=== PATIENT | male | born 2000 | race Hispanic/Latino ===

== ENCOUNTER 2020-09-03 18:49 | Emergency (ER) | payer BC ==
[~2020-09-03] VITALS: Ht 162.6 cm; Wt 68.0 kg
[2020-09-03] MEDS ORDERED: PANTOPRAZOLE 40 MG 10ML VIAL IV STA (19:21)
[2020-09-03] MEDS ORDERED: ONDANSETRON HCL INJ 2MG/ML 2ML 2 MG/ML VIAL IV STA (19:21)
[2020-09-03 19:41] LABS: BASOPHILS # (AUTO) 0.1 (0.0-0.1); BASOPHILS % 0.4 % (0.0-1.0); EOSINOPHILS % 0.1 % (0.0-6.0); HEMATOCRIT 42.2 % (38.2-49.6); HEMOGLOBIN 15.6 g/dL (14.0-18.0); LYMPHOCYTES # (AUTO) 1.1 (1.0-3.2); LYMPHOCYTES % 8.2 % (18.0-39.1); MEAN CORPUSCULAR HEMOGLOBIN 30.8 pg (28-32); MEAN CORPUSCULAR VOLUME 83.4 fL (81-99); MONOCYTES # (AUTO) 0.4 (0.2-0.8); MONOCYTES % 3.2 % (4.4-11.3); NEUTROPHILS # (AUTO) 11.8 (2.1-6.9); NEUTROPHILS % 87.1 % (38.7-80.0); PLATELET COUNT 252 x10e3/uL (140-360); RED BLOOD COUNT 5.06 x10e6/uL (4.3-5.7); RED CELL DISTRIBUTION WIDTH 11.8 % (11.7-14.4)
[2020-09-03 20:01] LABS: ALANINE AMINOTRANSFERASE 22 IU/L (0-55); ALBUMIN 4.8 g/dL (3.5-5.0); ALBUMIN/GLOBULIN RATIO 1.7 (0.8-2.0); ALKALINE PHOSPHATASE 95 IU/L (40-150); ANION GAP 17.7 mmol/L (8-16); BLOOD UREA NITROGEN 9 mg/dL (7-26); BUN/CREATININE RATIO 13 (6-25); CALCIUM 9.1 mg/dL (8.4-10.2); CARBON DIOXIDE 20 mmol/L (22-29); CHLORIDE 102 mmol/L (98-107); CREATININE, SERUM 0.67 mg/dL (0.72-1.25); EST GLOMERULAR FILTRATION RATE > 60 ML/MIN (60-); GLUCOSE 268 mg/dL (74-118); POTASSIUM 3.7 mmol/L (3.5-5.1); SODIUM 136 mmol/L (136-145)
[2020-09-03 20:02] LABS: AMYLASE 40 U/L (25-125); LIPASE 10 U/L (8-78)
[2020-09-03 22:53] LABS: CLARITY,URINE CLEAR (CLEAR); COLOR,URINE YELLOW (YELLOW)
[2020-09-03 22:54] LABS: AMPHETAMINES SCREEN,URINE NEGATIVE (NEGATIVE); BENZODIAZEPINES SCREEN,URINE POSITIVE (NEGATIVE); KETONES,URINE 3+ (NEGATIVE); LEUKOCYTE ESTERASE ,URINE NEGATIVE (NEGATIVE); NITRITE,URINE NEGATIVE (NEGATIVE); PHENCYCLIDINE SCREEN,URINE NEGATIVE (NEGATIVE); PROTEIN,URINE DIPSTICK NEGATIVE (NEGATIVE); URINE UROBILINOGEN 0.2 mg/dL (0.2 - 1)
[2020-09-03 22:58] LABS: BACTERIA,URINE RARE /HPF; EPITHELIAL CELLS,URINE RARE /LPF; WBC,URINE (MAN) 0-5 /HPF (0-5)
[2020-09-04 00:44] VITALS: BP 132/68
== END 2020-09-04 00:47 | disposition home or self-care (01) ==
LOC: ER 19:05
DX: K29.70 Gastritis, unspecified, without bleeding (principal); R11.10 Vomiting, unspecified; E11.9 Type 2 diabetes mellitus without complications; Z90.49 Acquired absence of other specified parts of digestive tract
CPT/HCPCS: 36415; 74022; 80053; 80307; 81001; 82150; 83690; 85025; 99284; C9113; J2405

== ENCOUNTER 2020-09-21 11:14 | Emergency (ER) | payer OTHER ==
[~2020-09-21] VITALS: Ht 162.6 cm; Wt 68.0 kg
[2020-09-21] MEDS ORDERED: SODIUM CHLORIDE 0.9% 1000ML 1,000 ML IV STA (11:37)
[2020-09-21] MEDS ORDERED: DIPHENHYDRAMINE HCL INJ 50 MG/ML VIAL IV ONE (11:45)
[2020-09-21] MEDS ORDERED: HALOPERIDOL LACTATE 5 MG/ML VIAL IV ONE (11:45)
[2020-09-21 11:54] LABS: BASOPHILS % 0.4 % (0.0-1.0); EOSINOPHILS # (AUTO) 0.1 (0.0-0.4); EOSINOPHILS % 0.8 % (0.0-6.0); HEMATOCRIT 41.3 % (38.2-49.6); HEMOGLOBIN 15.3 g/dL (14.0-18.0); LYMPHOCYTES # (AUTO) 2.2 (1.0-3.2); LYMPHOCYTES % 22.7 % (18.0-39.1); MEAN CORPUSCULAR HEMOGLOBIN 30.5 pg (28-32); MEAN CORPUSCULAR VOLUME 82.4 fL (81-99); MONOCYTES # (AUTO) 0.5 (0.2-0.8); MONOCYTES % 4.8 % (4.4-11.3); NEUTROPHILS # (AUTO) 6.7 (2.1-6.9); NEUTROPHILS % 70.9 % (38.7-80.0); PLATELET COUNT 253 x10e3/uL (140-360); RED BLOOD COUNT 5.01 x10e6/uL (4.3-5.7); RED CELL DISTRIBUTION WIDTH 11.6 % (11.7-14.4)
[2020-09-21 12:20] LABS: ALANINE AMINOTRANSFERASE 27 IU/L (0-55); ALBUMIN 4.5 g/dL (3.5-5.0); ALBUMIN/GLOBULIN RATIO 1.5 (0.8-2.0); ALKALINE PHOSPHATASE 86 IU/L (40-150); ANION GAP 18.6 mmol/L (8-16); BLOOD UREA NITROGEN 15 mg/dL (7-26); BUN/CREATININE RATIO 21 (6-25); CALCIUM 9.1 mg/dL (8.4-10.2); CARBON DIOXIDE 19 mmol/L (22-29); CHLORIDE 104 mmol/L (98-107); EST GLOMERULAR FILTRATION RATE > 60 ML/MIN (60-); GLUCOSE 252 mg/dL (74-118); LIPASE 29 U/L (8-78); POTASSIUM 3.6 mmol/L (3.5-5.1); SODIUM 138 mmol/L (136-145)
[2020-09-21 13:44] LABS: CLARITY,URINE CLEAR (CLEAR); COLOR,URINE YELLOW (YELLOW)
[2020-09-21 13:46] LABS: KETONES,URINE 2+ (NEGATIVE); LEUKOCYTE ESTERASE ,URINE NEGATIVE (NEGATIVE); NITRITE,URINE NEGATIVE (NEGATIVE); PROTEIN,URINE DIPSTICK NEGATIVE (NEGATIVE); URINE UROBILINOGEN 0.2 mg/dL (0.2 - 1)
[2020-09-21 13:47] LABS: AMPHETAMINES SCREEN,URINE NEGATIVE (NEGATIVE); BENZODIAZEPINES SCREEN,URINE NEGATIVE (NEGATIVE); PHENCYCLIDINE SCREEN,URINE NEGATIVE (NEGATIVE)
[2020-09-21 13:55] LABS: WBC,URINE (MAN) 0-5 /HPF (0-5)
[2020-09-21 13:56] LABS: BACTERIA,URINE RARE /HPF; EPITHELIAL CELLS,URINE FEW /LPF
== END 2020-09-21 13:52 | disposition left against medical advice (07) ==
LOC: ER 11:23
DX: R10.9 Unspecified abdominal pain (principal); R11.2 Nausea with vomiting, unspecified; K29.70 Gastritis, unspecified, without bleeding; K21.9 Gastro-esophageal reflux disease without esophagitis; F41.9 Anxiety disorder, unspecified
CPT/HCPCS: 36415; 74022; 80053; 80307; 81001; 83690; 85025; 93005; 99284; J1200; J1630; J7030

== ENCOUNTER 2021-01-17 13:43 | Emergency (ER) | payer SELFPAY ==
[~2021-01-17] VITALS: Ht 160 cm; Wt 77.1 kg
[~2021-01-17 13:43] MED LIST: CARAFATE1 GM/10 ML PO; HUMULIN 70100 UNIT/3 SQ; METFORMIN HCL500 MG PO; METOCLOPRAMIDE10 MG PO; NOVOLIN 70100 UNIT/3 SQ; ONDANSETRON ODT4 MG PO; PANTOPRAZOLE SO40 MG PO; PEPCID20 MG PO
[2021-01-17] MEDS ORDERED: KETOROLAC TROMETHAMINE 30 MG/ML VIAL IV STA (13:59)
[2021-01-17 14:30] LABS: CLARITY,URINE SL CLOUDY (CLEAR); COLOR,URINE YELLOW (YELLOW); KETONES,URINE >=160 (NEGATIVE); LEUKOCYTE ESTERASE ,URINE TRACE (NEGATIVE); NITRITE,URINE NEGATIVE (NEGATIVE); PROTEIN,URINE DIPSTICK NEGATIVE (NEGATIVE); URINE UROBILINOGEN 0.2 mg/dL (0.2 - 1)
[2021-01-17 14:38] LABS: BACTERIA,URINE MODERATE /HPF; EPITHELIAL CELLS,URINE FEW /LPF; TRANSITIONAL EPI CELLS,URINE RARE
[2021-01-17] MEDS ORDERED: DONNATAL/LIDOCAINE/MAALOX 30 ML SUSP PO ONE (14:45)
[2021-01-17] MEDS ORDERED: HALOPERIDOL LACTATE 5 MG/ML VIAL IV ONE (14:45)
[2021-01-17] MEDS ORDERED: CEPHALEXIN 500 MG CAP PO ONE (16:00)
[2021-01-17 16:42] LABS: BASOPHILS # (AUTO) 0.1 (0.0-0.1); BASOPHILS % 0.5 % (0.0-1.0); EOSINOPHILS % 0.2 % (0.0-6.0); HEMATOCRIT 45.5 % (38.2-49.6); HEMOGLOBIN 16.3 g/dL (14.0-18.0); LYMPHOCYTES # (AUTO) 0.9 (1.0-3.2); LYMPHOCYTES % 8.4 % (18.0-39.1); MEAN CORPUSCULAR HEMOGLOBIN 30.5 pg (28-32); MEAN CORPUSCULAR HGB CONC 35.8 g/dL (31-35); MEAN CORPUSCULAR VOLUME 85.2 fL (81-99); MONOCYTES # (AUTO) 0.4 (0.2-0.8); MONOCYTES % 4.1 % (4.4-11.3); NEUTROPHILS % 85.8 % (38.7-80.0); PLATELET COUNT 200 x10e3/uL (140-360); RED BLOOD COUNT 5.34 x10e6/uL (4.3-5.7); RED CELL DISTRIBUTION WIDTH 12.7 % (11.7-14.4)
[2021-01-17 17:03] LABS: ALBUMIN 4.2 g/dL (3.5-5.0); ALBUMIN/GLOBULIN RATIO 1.3 (0.8-2.0); ANION GAP 17.8 mmol/L (8-16); CALCIUM 8.9 mg/dL (8.4-10.2); CREATININE, SERUM 0.68 mg/dL (0.72-1.25); POTASSIUM 3.8 mmol/L (3.5-5.1)
[2021-01-17] MEDS ORDERED: SODIUM CHLORIDE 0.9% 50ML 50 ML ONE (17:54)
[2021-01-17] MEDS ORDERED: IOPAMIDOL 370 MG/ML 200 ML INFUS..BTL INJ ONE (17:55)
== END 2021-01-17 18:20 | disposition home or self-care (01) ==
LOC: MERGE 14:10 → ER 14:10
DX: E11.43 Type 2 diabetes mellitus with diabetic autonomic (poly)neuropathy (principal); R10.13 Epigastric pain; R16.2 Hepatomegaly with splenomegaly, not elsewhere classified; K21.9 Gastro-esophageal reflux disease without esophagitis; F17.210 Nicotine dependence, cigarettes, uncomplicated
CPT/HCPCS: 36415; 74177; 80053; 81001; 85025; 99284; J1630; J1885; Q9967

== ENCOUNTER 2021-01-20 21:42 | Emergency (ER) | payer SELFPAY ==
[~2021-01-20] VITALS: Ht 160 cm; Wt 77.1 kg
[2021-01-20] MEDS ORDERED: SODIUM CHLORIDE 0.9% 1000ML 1,000 ML IV STA (21:57)
[2021-01-20] MEDS ORDERED: HALOPERIDOL LACTATE 5 MG/ML VIAL IV ONE (22:00)
[2021-01-20] MEDS ORDERED: SODIUM CHLORIDE 0.9% 1000ML 1,000 ML ONE (22:05)
[2021-01-20] MEDS ORDERED: HALOPERIDOL LACTATE 5 MG/ML VIAL ONE (22:05)
[2021-01-20] MEDS ORDERED: REGLAN10 MG PO (22:09)
== END 2021-01-20 22:45 | disposition home or self-care (01) ==
LOC: FSED 21:46
DX: E11.43 Type 2 diabetes mellitus with diabetic autonomic (poly)neuropathy (principal); K31.84 Gastroparesis; R10.13 Epigastric pain; K21.9 Gastro-esophageal reflux disease without esophagitis
CPT/HCPCS: 80053; 85025; 99283; J1630; J7030

== ENCOUNTER 2021-01-22 08:08 | Inpatient (IN) | payer SELFPAY ==
[~2021-01-22] VITALS: Ht 160 cm; Wt 77.1 kg
[~2021-01-22 08:08] MED LIST changes: +REGLAN10 MG PO
[2021-01-22] MEDS ORDERED: SODIUM CHLORIDE 0.9% 1000ML 1,000 ML IV SCH ×3 (08:15→10:00)
[2021-01-22] MEDS ORDERED: HALOPERIDOL LACTATE 5 MG/ML VIAL IV ONE (08:15)
[2021-01-22 08:34] LABS: BASOPHILS # (AUTO) 0.1 (0.0-0.1); BASOPHILS % 0.5 % (0.0-1.0); EOSINOPHILS # (AUTO) 0.1 (0.0-0.4); EOSINOPHILS % 0.9 % (0.0-6.0); HEMATOCRIT 45.9 % (38.2-49.6); HEMOGLOBIN 16.7 g/dL (14.0-18.0); LYMPHOCYTES # (AUTO) 1.8 (1.0-3.2); LYMPHOCYTES % 16.5 % (18.0-39.1); MEAN CORPUSCULAR HEMOGLOBIN 30.5 pg (28-32); MEAN CORPUSCULAR HGB CONC 36.4 g/dL (31-35); MEAN CORPUSCULAR VOLUME 83.9 fL (81-99); MONOCYTES # (AUTO) 0.7 (0.2-0.8); MONOCYTES % 6.6 % (4.4-11.3); NEUTROPHILS # (AUTO) 7.9 (2.1-6.9); NEUTROPHILS % 74.4 % (38.7-80.0); PLATELET COUNT 215 x10e3/uL (140-360); RED BLOOD COUNT 5.47 x10e6/uL (4.3-5.7); RED CELL DISTRIBUTION WIDTH 12.5 % (11.7-14.4)
[2021-01-22] MEDS ORDERED: FAMOTIDINE 20 MG/2 ML VIAL IV STA (08:50)
[2021-01-22 08:58] LABS: CLARITY,URINE CLOUDY (CLEAR); COLOR,URINE YELLOW (YELLOW); KETONES,URINE >=160 (NEGATIVE); LEUKOCYTE ESTERASE ,URINE SMALL (NEGATIVE); NITRITE,URINE NEGATIVE (NEGATIVE); PROTEIN,URINE DIPSTICK NEGATIVE (NEGATIVE); URINE UROBILINOGEN 0.2 mg/dL (0.2 - 1)
[2021-01-22] MEDS ORDERED: TRAMADOL HCL 50 MG TAB PO ONE (09:00)
[2021-01-22 09:13] LABS: WBC,URINE (MAN) 21-50 /HPF (0-5)
[2021-01-22 09:14] LABS: BACTERIA,URINE MODERATE /HPF
[2021-01-22 09:15] LABS: ALBUMIN 4.3 g/dL (3.5-5.0); ALBUMIN/GLOBULIN RATIO 1.4 (0.8-2.0); ANION GAP 22.2 mmol/L (8-16); CALCIUM 8.9 mg/dL (8.4-10.2); CREATININE, SERUM 0.68 mg/dL (0.72-1.25); EPITHELIAL CELLS,URINE MODERATE /LPF; POTASSIUM 3.2 mmol/L (3.5-5.1)
[2021-01-22] MEDS ORDERED: INSULIN REGULAR, HUMAN 100 UNIT/1 ML IV ONE (09:30)
[2021-01-22] MEDS ORDERED: CEFTRIAXONE 1 GM VIAL IV ONE (09:30)
[2021-01-22] MEDS ORDERED: POTASSIUM CHLORIDE 20 MEQ TAB CR PO STA (09:33)
[2021-01-22] MEDS ORDERED: POTASSIUM CHLORIDE 20MEQ/100ML 100 ML IV ONE (09:45)
[2021-01-22] MEDS ORDERED: CEFTRIAXONE 1 GM in SODIUM CHLORIDE 0.9% 50ML 50 ML IV ONE (10:00)
[2021-01-22] MEDS ORDERED: Morphine 4mg Syringe 4 MG/ML INJ IV PRN ×2 (10:15→21:30)
[2021-01-22] MEDS ORDERED: INSULIN REGULAR, HUMAN 3ML VL 100 UNIT in SODIUM CHLORIDE 0.9% 100 ML 99 ML IV SCH ×2 (10:15)
[2021-01-22 10:57] LABS: CHOL/HDL RATIO 4.7 (3.9-4.7)
[2021-01-22 12:40] LABS: ANION GAP 15.7 mmol/L (8-16); CREATININE, SERUM 0.57 mg/dL (0.72-1.25); POTASSIUM 3.7 mmol/L (3.5-5.1)
[2021-01-22 12:41] LABS: CALCIUM 7.8 mg/dL (8.4-10.2)
[2021-01-22] MEDS ORDERED: DEXTROSE 5%/0.45% SOD CHL 1,000 ML IV ONE (12:45)
[2021-01-22 13:35] LABS: ANION GAP 13.9 mmol/L (8-16); CALCIUM 8.4 mg/dL (8.4-10.2); CREATININE, SERUM 0.67 mg/dL (0.72-1.25); POTASSIUM 3.9 mmol/L (3.5-5.1)
[2021-01-22] MEDS: SODIUM CHLORIDE 0.9% 1000ML 1,000 ML IV SCH ×2 (13:43→21:42)
[2021-01-22] MEDS ORDERED: DEXTROSE 50% SYRINGE 50 ML IV PRN ×2 (14:00→16:00)
[2021-01-22 16:07] VITALS: BP 149/85
[2021-01-22] MEDS ORDERED: INSULIN REGULAR, HUMAN 100 UNIT/1 ML SQ SCH (16:30)
[2021-01-22] MEDS ORDERED: METFORMIN HCL500 MG PO (16:43)
[2021-01-22] MEDS ORDERED: GLIPIZIDE5 MG PO (16:43)
[2021-01-22 16:49] VITALS: BP 149/85
[2021-01-22 17:18] VITALS: BP 149/85
[2021-01-22] MEDS: INSULIN REGULAR, HUMAN 100 UNIT/1 ML SQ SCH ×2 (17:59→21:04)
[2021-01-22] MEDS: METOCLOPRAMIDE HCL 10 MG/2ML VIAL IV SCH (17:59)
[2021-01-22 20:00] VITALS: BP 152/91
[2021-01-22] MEDS: MELATONIN 5 MG TABLET PO SCH (20:37)
[2021-01-22 22:18] VITALS: BP 152/91
[2021-01-22] MEDS: ONDANSETRON HCL INJ 2MG/ML 2ML 2 MG/ML VIAL IV PRN (22:51)
[2021-01-23] VITALS: BP 141/82
[2021-01-23 04:00] VITALS: BP 145/88
[2021-01-23] MEDS: SODIUM CHLORIDE 0.9% 1000ML 1,000 ML IV SCH (05:07)
[2021-01-23] MEDS: ONDANSETRON HCL INJ 2MG/ML 2ML 2 MG/ML VIAL IV PRN ×4 (05:38→23:56)
[2021-01-23] MEDS: Morphine 4mg Syringe 4 MG/ML INJ IV PRN ×4 (05:38→23:55)
[2021-01-23 06:01] LABS: BASOPHILS % 0.4 % (0.0-1.0); EOSINOPHILS % 0.4 % (0.0-6.0); HEMOGLOBIN 15.5 g/dL (14.0-18.0); LYMPHOCYTES # (AUTO) 1.6 (1.0-3.2); LYMPHOCYTES % 21.9 % (18.0-39.1); MEAN CORPUSCULAR HEMOGLOBIN 30.6 pg (28-32); MEAN CORPUSCULAR VOLUME 84.8 fL (81-99); MONOCYTES # (AUTO) 0.6 (0.2-0.8); MONOCYTES % 7.8 % (4.4-11.3); NEUTROPHILS # (AUTO) 5.1 (2.1-6.9); NEUTROPHILS % 68.4 % (38.7-80.0); PLATELET COUNT 202 x10e3/uL (140-360); RED BLOOD COUNT 5.07 x10e6/uL (4.3-5.7); RED CELL DISTRIBUTION WIDTH 12.5 % (11.7-14.4)
[2021-01-23 06:30] LABS: ALANINE AMINOTRANSFERASE 43 IU/L (0-55); ALBUMIN 3.9 g/dL (3.5-5.0); ALBUMIN/GLOBULIN RATIO 1.5 (0.8-2.0); ALKALINE PHOSPHATASE 75 IU/L (40-150); ANION GAP 16.1 mmol/L (8-16); CALCIUM 8.6 mg/dL (8.4-10.2); CARBON DIOXIDE 22 mmol/L (22-29); CHLORIDE 100 mmol/L (98-107); CREATININE, SERUM 0.57 mg/dL (0.72-1.25); EST GLOMERULAR FILTRATION RATE 180 ML/MIN (60-); GLUCOSE 178 mg/dL (74-118); POTASSIUM 3.1 mmol/L (3.5-5.1); SODIUM 135 mmol/L (136-145)
[2021-01-23 06:44] LABS: BUN/CREATININE RATIO 9 (6-25)
[2021-01-23 06:45] LABS: BLOOD UREA NITROGEN < 5 mg/dL (7-26)
[2021-01-23 07:08] VITALS: BP 142/84
[2021-01-23] MEDS: INSULIN REGULAR, HUMAN 100 UNIT/1 ML SQ SCH ×4 (07:56→21:27)
[2021-01-23] MEDS: METOCLOPRAMIDE HCL 10 MG/2ML VIAL IV SCH ×2 (08:55→17:11)
[2021-01-23] MEDS ORDERED: POTASSIUM CHLORIDE 20 MEQ TAB CR PO ONE (10:00)
[2021-01-23] MEDS: KCL 20MEQ/.9 SOD CHL 1,000 ML IV SCH ×2 (10:30→21:29)
[2021-01-23 10:57] VITALS: BP 141/89
[2021-01-23 14:49] VITALS: BP 141/92
[2021-01-23 16:53] LABS: ANION GAP 16.9 mmol/L (8-16); BLOOD UREA NITROGEN < 5 mg/dL (7-26); CALCIUM 8.9 mg/dL (8.4-10.2); CARBON DIOXIDE 23 mmol/L (22-29); CHLORIDE 100 mmol/L (98-107); CREATININE, SERUM 0.61 mg/dL (0.72-1.25); EST GLOMERULAR FILTRATION RATE 167 ML/MIN (60-); GLUCOSE 151 mg/dL (74-118); POTASSIUM 3.9 mmol/L (3.5-5.1); SODIUM 136 mmol/L (136-145)
[2021-01-23 16:58] LABS: BUN/CREATININE RATIO 8 (6-25)
[2021-01-23] MEDS ORDERED: PROMETHAZINE 12.5MG/ NACL 0.9% 12.5 MG/50 ML BAG IV PRN (18:15)
[2021-01-23] MEDS ORDERED: HALOPERIDOL LACTATE 5 MG/ML VIAL IV ONE (18:25)
[2021-01-23 20:00] VITALS: BP 135/82
[2021-01-23] MEDS: CEFEPIME 1 GM in SODIUM CHLORIDE 0.9% 50ML 50 ML IV SCH (21:26)
[2021-01-23] MEDS: MELATONIN 5 MG TABLET PO SCH (21:26)
[2021-01-24] VITALS: BP 134/81
[2021-01-24 04:00] VITALS: BP 135/82
[2021-01-24] MEDS: KCL 20MEQ/.9 SOD CHL 1,000 ML IV SCH (06:22)
[2021-01-24 07:08] VITALS: BP 125/84
[2021-01-24] MEDS: INSULIN REGULAR, HUMAN 100 UNIT/1 ML SQ SCH ×2 (07:30→11:30)
[2021-01-24] MEDS: METOCLOPRAMIDE HCL 10 MG/2ML VIAL IV SCH ×2 (08:48→14:46)
[2021-01-24] MEDS: CEFEPIME 1 GM in SODIUM CHLORIDE 0.9% 50ML 50 ML IV SCH (08:48)
[2021-01-24 10:44] LABS: ANION GAP 13.7 mmol/L (8-16); CALCIUM 8.7 mg/dL (8.4-10.2); CREATININE, SERUM 0.68 mg/dL (0.72-1.25); POTASSIUM 3.7 mmol/L (3.5-5.1)
[2021-01-24 10:52] VITALS: BP 135/87
[2021-01-24] MEDS ORDERED: ZOFRAN4 MG PO (14:54)
[2021-01-24] MEDS ORDERED: PANTOPRAZOLE SO40 MG PO (14:54)
[2021-01-24] MEDS ORDERED: HUMULIN R100 UNIT/2 INJ (14:54)
[2021-01-24 15:11] VITALS: BP 139/92
== END 2021-01-24 15:35 | disposition home or self-care (01) | DRG 638 ==
LOC: ER 08:17 → ERHOLD 09:51 → MED/SURG 15:57
PROVIDERS: ADMIT Family Medicine; ATTEND Family Medicine
DX: E11.10 Type 2 diabetes mellitus with ketoacidosis without coma (principal); N39.0 Urinary tract infection, site not specified; K76.0 Fatty (change of) liver, not elsewhere classified; E11.43 Type 2 diabetes mellitus with diabetic autonomic (poly)neuropathy; K31.84 Gastroparesis; Z79.899 Other long term (current) drug therapy; Z20.822 Contact with and (suspected) exposure to COVID-19
CPT/HCPCS: 36415; 76705; 80048; 80053; 80061; 81001; 82948; 83036; 83690; 83735; 85025; 93005; 96361; 99284; J0692; J0696; J1630; J1817; J2270; J2405; J2550; J2765; J3480; J7030

== ENCOUNTER 2021-02-09 00:20 | Observation (INO) | payer SELFPAY ==
[~2021-02-09] VITALS: Ht 160 cm; Wt 77.1 kg
[2021-02-09] VITALS (8 sets, daily range): BP systolic 139–158; BP diastolic 81–98
[~2021-02-09 00:20] MED LIST changes: +GLIPIZIDE5 MG PO; +HUMULIN R100 UNIT/2 INJ; +ZOFRAN4 MG PO
[2021-02-09] MEDS ORDERED: SODIUM CHLORIDE 0.9% 1000ML 1,000 ML IV STA ×2 (00:25)
[2021-02-09 00:42] LABS: BASOPHILS # (AUTO) 0.1 (0.0-0.1); BASOPHILS % 0.4 % (0.0-1.0); EOSINOPHILS % 0.1 % (0.0-6.0); HEMATOCRIT 46.8 % (38.2-49.6); HEMOGLOBIN 16.9 g/dL (14.0-18.0); LYMPHOCYTES # (AUTO) 0.7 (1.0-3.2); LYMPHOCYTES % 4.6 % (18.0-39.1); MEAN CORPUSCULAR HEMOGLOBIN 30.8 pg (28-32); MEAN CORPUSCULAR HGB CONC 36.1 g/dL (31-35); MEAN CORPUSCULAR VOLUME 85.2 fL (81-99); MONOCYTES # (AUTO) 0.6 (0.2-0.8); MONOCYTES % 3.9 % (4.4-11.3); NEUTROPHILS % 90.4 % (38.7-80.0); PLATELET COUNT 268 x10e3/uL (140-360); RED BLOOD COUNT 5.49 x10e6/uL (4.3-5.7)
[2021-02-09] MEDS ORDERED: HALOPERIDOL 5 MG TAB PO ONE (01:00)
[2021-02-09] MEDS ORDERED: TRAMADOL HCL 50 MG TAB PO ONE (01:00)
[2021-02-09 01:04] LABS: ALBUMIN 4.6 g/dL (3.5-5.0); ALBUMIN/GLOBULIN RATIO 1.2 (0.8-2.0); ANION GAP 24.6 mmol/L (8-16); CALCIUM 9.7 mg/dL (8.4-10.2); CREATININE, SERUM 0.77 mg/dL (0.72-1.25); POTASSIUM 4.6 mmol/L (3.5-5.1)
[2021-02-09 01:08] LABS: ABG HCO3 16 mmol/L (22-26); ABG PCO2 19 mmHg (35-45); ABG PH 7.53 (7.35-7.45); ABG PO2 137 mmHg (80-105); ABG TCO2 16
[2021-02-09 02:08] LABS: CLARITY,URINE CLEAR (CLEAR); COLOR,URINE YELLOW (YELLOW); LEUKOCYTE ESTERASE ,URINE NEGATIVE (NEGATIVE); NITRITE,URINE NEGATIVE (NEGATIVE); PROTEIN,URINE DIPSTICK 2+ (NEGATIVE)
[2021-02-09 02:09] LABS: KETONES,URINE >=160 (NEGATIVE); URINE UROBILINOGEN 0.2 mg/dL (0.2 - 1)
[2021-02-09 02:16] LABS: BACTERIA,URINE FEW /HPF; EPITHELIAL CELLS,URINE RARE /LPF; RBC,URINE 0-5 /HPF (0-5); WBC,URINE (MAN) 0-5 /HPF (0-5)
[2021-02-09] MEDS ORDERED: INSULIN REGULAR, HUMAN 100 UNIT/1 ML IV ONE (03:00)
[2021-02-09] MEDS ORDERED: INSULIN REGULAR, HUMAN 100 UNIT/1 ML ONE (03:03)
[2021-02-09 03:59] LABS: ALBUMIN 3.8 g/dL (3.5-5.0); ALBUMIN/GLOBULIN RATIO 1.2 (0.8-2.0); ANION GAP 17.1 mmol/L (8-16); CALCIUM 8.4 mg/dL (8.4-10.2); CREATININE, SERUM 0.63 mg/dL (0.72-1.25); POTASSIUM 4.1 mmol/L (3.5-5.1)
[2021-02-09] MEDS ORDERED: DEXTROSE 50% SYRINGE 50 ML IV PRN ×4 (04:15→07:45)
[2021-02-09] MEDS ORDERED: ONDANSETRON HCL INJ 2MG/ML 2ML 2 MG/ML VIAL IV PRN (04:15)
[2021-02-09] MEDS ORDERED: INSULIN REGULAR, HUMAN 100 UNIT/1 ML SQ SCH (11:30)
[2021-02-09] MEDS: INSULIN REGULAR, HUMAN 100 UNIT/1 ML SQ SCH ×3 (12:06→20:38)
[2021-02-09] MEDS: SUCRALFATE 1 GM/10 ML SUSP PO SCH ×2 (16:26→20:32)
[2021-02-09] MEDS: FAMOTIDINE 20 MG TAB PO SCH (16:26)
[2021-02-09] MEDS: ONDANSETRON HCL 4 MG ORAL DISINTEGRATING TAB PO SCH (18:00)
[2021-02-09] MEDS: METOCLOPRAMIDE HCL 10 MG/2ML VIAL IV SCH (18:00)
[2021-02-09] MEDS: Morphine 4mg Syringe 4 MG/ML INJ IV PRN (20:33)
[2021-02-10] MEDS: METOCLOPRAMIDE HCL 10 MG/2ML VIAL IV SCH ×2 (01:16→05:01)
[2021-02-10] MEDS: ONDANSETRON HCL 4 MG ORAL DISINTEGRATING TAB PO SCH ×2 (01:16→05:01)
[2021-02-10] MEDS ORDERED: CHLORDIAZEPOXIDE/CLIDINIUM 1 CAP PO STA (01:59)
[2021-02-10] MEDS: Morphine 4mg Syringe 4 MG/ML INJ IV PRN (02:40)
[2021-02-10 04:55] VITALS: BP 141/89
[2021-02-10 06:04] LABS: BASOPHILS % 0.3 % (0.0-1.0); EOSINOPHILS # (AUTO) 0.2 (0.0-0.4); EOSINOPHILS % 2.9 % (0.0-6.0); HEMATOCRIT 44.3 % (38.2-49.6); HEMOGLOBIN 15.8 g/dL (14.0-18.0); LYMPHOCYTES # (AUTO) 1.4 (1.0-3.2); LYMPHOCYTES % 19.9 % (18.0-39.1); MEAN CORPUSCULAR HEMOGLOBIN 30.3 pg (28-32); MEAN CORPUSCULAR HGB CONC 35.7 g/dL (31-35); MONOCYTES # (AUTO) 0.6 (0.2-0.8); MONOCYTES % 8.1 % (4.4-11.3); NEUTROPHILS # (AUTO) 4.6 (2.1-6.9); NEUTROPHILS % 67.9 % (38.7-80.0); PLATELET COUNT 220 x10e3/uL (140-360); RED BLOOD COUNT 5.21 x10e6/uL (4.3-5.7); RED CELL DISTRIBUTION WIDTH 11.8 % (11.7-14.4)
[2021-02-10 06:33] LABS: ALBUMIN/GLOBULIN RATIO 1.3 (0.8-2.0); ANION GAP 16.5 mmol/L (8-16); CREATININE, SERUM 0.61 mg/dL (0.72-1.25); POTASSIUM 3.5 mmol/L (3.5-5.1)
[2021-02-10] MEDS ORDERED: CHLORDIAZEPOXIDE/CLIDINIUM 1 CAP PO SCH (07:30)
[2021-02-10 07:59] VITALS: BP 143/93
[2021-02-10 08:00] VITALS: BP 143/93
[2021-02-10] MEDS: SUCRALFATE 1 GM/10 ML SUSP PO SCH (08:36)
[2021-02-10] MEDS: FAMOTIDINE 20 MG TAB PO SCH (08:37)
[2021-02-10] MEDS: INSULIN REGULAR, HUMAN 100 UNIT/1 ML SQ SCH (08:43)
[2021-02-10] MEDS ORDERED: PANTOPRAZOLE SOD 40 MG TABEC PO SCH (09:00)
== END 2021-02-10 10:48 | disposition home or self-care (01) ==
LOC: ER 00:27 → ERHOLD 04:22 → MED/SURG3 05:41
PROVIDERS: ADMIT Internal Medicine; ATTEND Internal Medicine
DX: E11.43 Type 2 diabetes mellitus with diabetic autonomic (poly)neuropathy (principal); K31.84 Gastroparesis; Z79.899 Other long term (current) drug therapy; E66.9 Obesity, unspecified; Z68.30 Body mass index [BMI] 30.0-30.9, adult; K76.0 Fatty (change of) liver, not elsewhere classified; E11.649 Type 2 diabetes mellitus with hypoglycemia without coma; Z20.822 Contact with and (suspected) exposure to COVID-19
CPT/HCPCS: 36415 ×2; 36600; 80053 ×2; 81001; 82805; 82948 ×2; 83036; 83690; 85025 ×2; 99284; C9113; G0378 ×2; J2270 ×2; J2405; J2765 ×2; J7030; Q0162 ×2; U0002; J1817

== ENCOUNTER 2021-02-23 11:03 | Emergency (ER) | payer SELFPAY ==
[~2021-02-23] VITALS: Ht 162.6 cm; Wt 72.6 kg
[2021-02-23] MEDS ORDERED: SODIUM CHLORIDE 0.9% 1000ML 1,000 ML IV STA ×2 (11:13→11:55)
[2021-02-23 11:26] LABS: BASOPHILS # (AUTO) 0.1 (0.0-0.1); BASOPHILS % 0.3 % (0.0-1.0); EOSINOPHILS # (AUTO) 0.1 (0.0-0.4); EOSINOPHILS % 0.8 % (0.0-6.0); HEMATOCRIT 49.1 % (38.2-49.6); HEMOGLOBIN 17.9 g/dL (14.0-18.0); LYMPHOCYTES % 13.5 % (18.0-39.1); MEAN CORPUSCULAR HEMOGLOBIN 30.3 pg (28-32); MEAN CORPUSCULAR HGB CONC 36.5 g/dL (31-35); MEAN CORPUSCULAR VOLUME 83.1 fL (81-99); MONOCYTES # (AUTO) 0.6 (0.2-0.8); MONOCYTES % 4.2 % (4.4-11.3); NEUTROPHILS # (AUTO) 11.7 (2.1-6.9); NEUTROPHILS % 80.4 % (38.7-80.0); PLATELET COUNT 311 x10e3/uL (140-360); RED BLOOD COUNT 5.91 x10e6/uL (4.3-5.7); RED CELL DISTRIBUTION WIDTH 11.8 % (11.7-14.4)
[2021-02-23 11:36] LABS: ALBUMIN 4.7 g/dL (3.5-5.0); ALBUMIN/GLOBULIN RATIO 1.3 (0.8-2.0); ANION GAP 22.2 mmol/L (8-16); CALCIUM 10.2 mg/dL (8.4-10.2); CREATININE, SERUM 0.81 mg/dL (0.72-1.25); POTASSIUM 4.2 mmol/L (3.5-5.1)
[2021-02-23] MEDS ORDERED: DIPHENHYDRAMINE HCL INJ 50 MG/ML VIAL IV ONE (12:00)
[2021-02-23] MEDS ORDERED: METOCLOPRAMIDE HCL 10 MG/2ML VIAL IV ONE (12:00)
[2021-02-23 12:30] LABS: ABG PCO2 36 mmHg (35-45); ABG PH 7.38 (7.35-7.45); ABG PO2 85 mmHg (80-105)
[2021-02-23] MEDS ORDERED: INSULIN REGULAR, HUMAN 100 UNIT/1 ML IV ONE (12:30)
[2021-02-23 12:31] LABS: ABG HCO3 22 mmol/L (22-26); ABG TCO2 23
[2021-02-23] MEDS ORDERED: IOPAMIDOL 370 MG/ML 200 ML INFUS..BTL INJ ONE (12:54)
[2021-02-23] MEDS ORDERED: SODIUM CHLORIDE 0.9% 50ML 50 ML ONE (12:54)
[2021-02-23] MEDS ORDERED: SODIUM CHLORIDE 0.9% 500ML 500 ML IV ONE (13:00)
[2021-02-23] MEDS ORDERED: CEFTRIAXONE 1 GM in SODIUM CHLORIDE 0.9% 50ML 50 ML IV ONE (13:30)
[2021-02-23 13:42] LABS: AMPHETAMINES SCREEN,URINE NEGATIVE (NEGATIVE); BENZODIAZEPINES SCREEN,URINE NEGATIVE (NEGATIVE); PHENCYCLIDINE SCREEN,URINE NEGATIVE (NEGATIVE)
[2021-02-23 13:50] LABS: CLARITY,URINE CLEAR (CLEAR); COLOR,URINE YELLOW (YELLOW); KETONES,URINE >=160 (NEGATIVE); LEUKOCYTE ESTERASE ,URINE NEGATIVE (NEGATIVE); NITRITE,URINE NEGATIVE (NEGATIVE); PROTEIN,URINE DIPSTICK NEGATIVE (NEGATIVE); URINE UROBILINOGEN 0.2 mg/dL (0.2 - 1)
[2021-02-23] MEDS ORDERED: CEFTRIAXONE 1 GM VIAL ONE (13:56)
[2021-02-23 14:27] LABS: BACTERIA,URINE FEW /HPF; EPITHELIAL CELLS,URINE FEW /LPF; RBC,URINE 0-5 /HPF (0-5); WBC,URINE (MAN) 0-5 /HPF (0-5)
== END 2021-02-23 17:06 | disposition home or self-care (01) ==
LOC: ER 11:13
DX: E11.43 Type 2 diabetes mellitus with diabetic autonomic (poly)neuropathy (principal); K31.84 Gastroparesis; Z20.822 Contact with and (suspected) exposure to COVID-19; K21.9 Gastro-esophageal reflux disease without esophagitis
CPT/HCPCS: 36415; 36600; 71045; 74177; 80053; 80307; 81001; 82150; 82805; 82948; 83605; 83690; 85025; 87040; 99285; C9113; J0696; J1200; J1817; J2765; J7030; J7040; Q9967; U0002

== ENCOUNTER 2021-02-28 07:10 | Emergency (ER) | payer SELFPAY ==
[~2021-02-28] VITALS: Ht 162.6 cm; Wt 72.6 kg
[2021-02-28] MEDS ORDERED: KETOROLAC TROMETHAMINE 30 MG/ML VIAL IV STA (07:14)
[2021-02-28] MEDS ORDERED: SODIUM CHLORIDE 0.9% 1000ML 1,000 ML IV SCH ×2 (07:15)
[2021-02-28] MEDS ORDERED: SODIUM CHLORIDE 0.9% 1000ML 2,000 ML ONE (07:24)
[2021-02-28] MEDS ORDERED: ONDANSETRON HCL INJ 2MG/ML 2ML 2 MG/ML VIAL ONE (07:26)
[2021-02-28] MEDS: HALOPERIDOL LACTATE 5 MG/ML VIAL IV ONE ×2 (07:26→07:33)
[2021-02-28 07:35] LABS: BASOPHILS # (AUTO) 0.1 (0.0-0.1); BASOPHILS % 0.5 % (0.0-1.0); EOSINOPHILS # (AUTO) 0.1 (0.0-0.4); EOSINOPHILS % 1.1 % (0.0-6.0); HEMATOCRIT 44.5 % (38.2-49.6); HEMOGLOBIN 16.3 g/dL (14.0-18.0); LYMPHOCYTES # (AUTO) 2.1 (1.0-3.2); LYMPHOCYTES % 21.1 % (18.0-39.1); MEAN CORPUSCULAR HEMOGLOBIN 30.7 pg (28-32); MEAN CORPUSCULAR HGB CONC 36.6 g/dL (31-35); MEAN CORPUSCULAR VOLUME 83.8 fL (81-99); MONOCYTES # (AUTO) 0.4 (0.2-0.8); MONOCYTES % 4.1 % (4.4-11.3); NEUTROPHILS # (AUTO) 7.1 (2.1-6.9); NEUTROPHILS % 72.7 % (38.7-80.0); PLATELET COUNT 279 x10e3/uL (140-360); RED BLOOD COUNT 5.31 x10e6/uL (4.3-5.7); RED CELL DISTRIBUTION WIDTH 12.1 % (11.7-14.4)
[2021-02-28 07:54] LABS: ALBUMIN 4.4 g/dL (3.5-5.0); ALBUMIN/GLOBULIN RATIO 1.5 (0.8-2.0); ANION GAP 20.3 mmol/L (8-16); CALCIUM 9.4 mg/dL (8.4-10.2); CREATININE, SERUM 0.69 mg/dL (0.72-1.25); POTASSIUM 3.3 mmol/L (3.5-5.1)
[2021-02-28] MEDS ORDERED: POTASSIUM CHLORIDE 20 MEQ TAB CR PO STA (07:55)
[2021-02-28 09:15] VITALS: BP 146/67
== END 2021-02-28 09:17 | disposition home or self-care (01) ==
LOC: ER 07:20
DX: E11.43 Type 2 diabetes mellitus with diabetic autonomic (poly)neuropathy (principal); K31.84 Gastroparesis; K21.9 Gastro-esophageal reflux disease without esophagitis; Z86.16 Personal history of COVID-19
CPT/HCPCS: 36415; 80053; 85025; 99284; J1630; J1885; J2405; J7030

== ENCOUNTER 2021-03-02 22:46 | Emergency (ER) | payer SELFPAY ==
[~2021-03-02] VITALS: Ht 162.6 cm; Wt 72.6 kg
[2021-03-02] MEDS ORDERED: KETOROLAC TROMETHAMINE 30 MG/ML VIAL IV STA (22:48)
[2021-03-02] MEDS ORDERED: SODIUM CHLORIDE 0.9% 1000ML 1,000 ML IV SCH (23:00)
[2021-03-02] MEDS ORDERED: PROMETHAZINE 25MG/ NS 50ML (IV) IV ONE (23:00)
== END 2021-03-02 22:55 | disposition home or self-care (01) ==
LOC: ER 22:50
DX: E11.43 Type 2 diabetes mellitus with diabetic autonomic (poly)neuropathy (principal); K31.84 Gastroparesis

== ENCOUNTER 2021-04-07 09:49 | Emergency (ER) | payer SELFPAY ==
[~2021-04-07] VITALS: Ht 160 cm; Wt 77.1 kg
[2021-04-07] MEDS ORDERED: METOCLOPRAMIDE HCL 10 MG/2ML VIAL ONE (10:08)
[2021-04-07] MEDS ORDERED: SODIUM CHLORIDE 0.9% 1000ML 2,000 ML ONE (10:09)
[2021-04-07] MEDS ORDERED: KETOROLAC TROMETHAMINE 30 MG/ML VIAL ONE (10:09)
[2021-04-07] MEDS ORDERED: KETOROLAC TROMETHAMINE 30 MG/ML VIAL IV STA (10:20)
[2021-04-07] MEDS ORDERED: METOCLOPRAMIDE HCL 10 MG/2ML VIAL IV ONE (10:30)
[2021-04-07] MEDS ORDERED: SODIUM CHLORIDE 0.9% 1000ML 1,000 ML IV SCH ×2 (10:30)
[2021-04-07] MEDS ORDERED: IBUPROFEN600 MG PO (12:11)
[2021-04-07] MEDS ORDERED: REGLAN10 MG PO (12:11)
[2021-04-07 12:32] VITALS: BP 148/91
== END 2021-04-07 12:35 | disposition home or self-care (01) ==
LOC: FSED 10:00
DX: R10.13 Epigastric pain (principal); R11.2 Nausea with vomiting, unspecified; E11.65 Type 2 diabetes mellitus with hyperglycemia; R19.7 Diarrhea, unspecified; K21.9 Gastro-esophageal reflux disease without esophagitis; Z86.16 Personal history of COVID-19
CPT/HCPCS: 76705; 80048; 80076; 81003; 85025; 96374; 96376; 99283; J1885; J2765; J7030

== ENCOUNTER 2021-04-12 23:13 | Emergency (ER) | payer SELFPAY ==
[~2021-04-12] VITALS: Ht 160 cm; Wt 81.6 kg
[~2021-04-12 23:13] MED LIST changes: +IBUPROFEN600 MG PO
[2021-04-12] MEDS ORDERED: SODIUM CHLORIDE 0.9% 1000ML 1,000 ML IV STA (23:32)
[2021-04-12] MEDS ORDERED: REGLAN10 MG PO (23:39)
[2021-04-12] MEDS ORDERED: MAALOX MAXIMUM355 ML PO (23:39)
[2021-04-12] MEDS ORDERED: OMEPRAZOLE20 M2 PO (23:39)
[2021-04-12] MEDS ORDERED: ONDANSETRON ODT4 MG PO (23:39)
[2021-04-12] MEDS ORDERED: METOCLOPRAMIDE HCL 10 MG/2ML VIAL IV ONE (23:45)
[2021-04-12] MEDS ORDERED: FAMOTIDINE 20 MG/2 ML VIAL IV ONE (23:45)
[2021-04-12] MEDS ORDERED: KETOROLAC TROMETHAMINE 30 MG/ML VIAL IV ONE (23:45)
[2021-04-12] MEDS ORDERED: SODIUM CHLORIDE 0.9% 1000ML 1,000 ML ONE (23:48)
[2021-04-12] MEDS ORDERED: KETOROLAC TROMETHAMINE 30 MG/ML VIAL ONE (23:48)
[2021-04-12] MEDS ORDERED: METOCLOPRAMIDE HCL 10 MG/2ML VIAL ONE (23:48)
[2021-04-12] MEDS ORDERED: ONDANSETRON HCL INJ 2MG/ML 2ML 2 MG/ML VIAL ONE (23:48)
[2021-04-13] MEDS ORDERED: ONDANSETRON ODT4 MG PO (16:08)
== END 2021-04-12 23:46 | disposition left against medical advice (07) ==
LOC: FSED 23:24
DX: R11.2 Nausea with vomiting, unspecified (principal)
CPT/HCPCS: 80053; 81003; 85025; J1885; J2405; J2765; J7030

== ENCOUNTER 2021-04-13 06:26 | Inpatient (IN) | payer SELFPAY ==
[~2021-04-13] VITALS: Ht 160 cm; Wt 77.6 kg
[~2021-04-13 06:26] MED LIST changes: +MAALOX MAXIMUM355 ML PO; +OMEPRAZOLE20 M2 PO
[2021-04-13] MEDS ORDERED: LACTATED RINGER'S 1,000 ML INJ ONE ×2 (06:45→08:00)
[2021-04-13] MEDS ORDERED: INSULIN REGULAR, HUMAN 100 UNIT/1 ML IV ONE ×4 (06:45→08:15)
[2021-04-13] MEDS: DONNATAL/LIDOCAINE/MAALOX 30 ML SUSP PO SCH ×2 (06:47→16:14)
[2021-04-13 06:52] LABS: BASOPHILS % 0.3 % (0.0-1.0); EOSINOPHILS % 0.1 % (0.0-6.0); HEMATOCRIT 44.8 % (38.2-49.6); HEMOGLOBIN 16.3 g/dL (14.0-18.0); LYMPHOCYTES # (AUTO) 1.2 (1.0-3.2); LYMPHOCYTES % 8.7 % (18.0-39.1); MEAN CORPUSCULAR HEMOGLOBIN 30.5 pg (28-32); MEAN CORPUSCULAR HGB CONC 36.4 g/dL (31-35); MEAN CORPUSCULAR VOLUME 83.7 fL (81-99); MONOCYTES # (AUTO) 0.6 (0.2-0.8); MONOCYTES % 4.3 % (4.4-11.3); NEUTROPHILS # (AUTO) 11.6 (2.1-6.9); NEUTROPHILS % 85.2 % (38.7-80.0); PLATELET COUNT 297 x10e3/uL (140-360); RED BLOOD COUNT 5.35 x10e6/uL (4.3-5.7); RED CELL DISTRIBUTION WIDTH 12.2 % (11.7-14.4)
[2021-04-13] MEDS ORDERED: LIDOCAINE VISC 2% SOLN 15 ML UDC ONE (06:53)
[2021-04-13] MEDS ORDERED: BELLADONNA ALK/PHENOBARBITAL 5 ML UDC ONE (06:53)
[2021-04-13] MEDS ORDERED: MAGNESIUM/ALUMINUM/SIMETHICONE 30 ML UDC ONE (06:54)
[2021-04-13 07:13] LABS: ALBUMIN 4.7 g/dL (3.5-5.0); ALBUMIN/GLOBULIN RATIO 1.2 (0.8-2.0); ANION GAP 25.2 mmol/L (8-16); CALCIUM 10.3 mg/dL (8.4-10.2); CREATININE, SERUM 0.85 mg/dL (0.72-1.25); POTASSIUM 4.2 mmol/L (3.5-5.1)
[2021-04-13] MEDS ORDERED: POTASSIUM CHLORIDE 20MEQ/100ML 200 ML IV PRN (08:00)
[2021-04-13] MEDS ORDERED: MAGNESIUM SULF 1GRAM/DEXTROSE 100 ML IV PRN (08:00)
[2021-04-13] MEDS ORDERED: INSULIN REGULAR, HUMAN 3ML VL 100 UNIT in SODIUM CHLORIDE 0.9% 100 ML IV SCH ×2 (08:00)
[2021-04-13] MEDS ORDERED: DEXTROSE 5%/0.45% SOD CHL 1,000 ML IV SCH (08:00)
[2021-04-13] MEDS ORDERED: ONDANSETRON HCL INJ 2MG/ML 2ML 2 MG/ML VIAL IV PRN (08:15)
[2021-04-13] MEDS ORDERED: INSULIN REGULAR, HUMAN 100 UNIT/1 ML SQ ONE ×2 (08:15→08:30)
[2021-04-13] MEDS: SODIUM CHLORIDE 0.9% 1000ML 1,000 ML IV SCH ×3 (08:29→15:58)
[2021-04-13 08:30] LABS: ABG HCO3 17 mmol/L (22-26); ABG PCO2 27 mmHg (35-45); ABG PO2 111 mmHg (80-105)
[2021-04-13 08:31] LABS: ABG TCO2 17
[2021-04-13] MEDS ORDERED: MINERAL OIL 132 ML BTL PR ONE (09:45)
[2021-04-13 10:28] LABS: ANION GAP 16.8 mmol/L (8-16); CALCIUM 9.4 mg/dL (8.4-10.2); CREATININE, SERUM 0.65 mg/dL (0.72-1.25); MAGNESIUM 1.9 MG/DL (1.3-2.1); POTASSIUM 3.8 mmol/L (3.5-5.1)
[2021-04-13] MEDS ORDERED: DEXTROSE 50% SYRINGE 50 ML IV PRN (12:00)
[2021-04-13] MEDS ORDERED: INSULIN GLARGINE 100 UNITS/ML VIAL SQ ONE (12:00)
[2021-04-13 12:44] VITALS: BP 141/76
[2021-04-13 12:46] VITALS: BP 141/76
[2021-04-13 12:48] VITALS: BP 141/76
[2021-04-13 15:59] VITALS: BP 144/89
[2021-04-13] MEDS ORDERED: ONDANSETRON ODT4 MG PO (16:08)
[2021-04-13] MEDS ORDERED: INSULIN REGULAR, HUMAN 100 UNIT/1 ML SQ SCH (16:30)
[2021-04-14] MEDS ORDERED: ONDANSETRON ODT4 MG PO (07:36)
== END 2021-04-13 16:26 | disposition home or self-care (01) | DRG 639 ==
LOC: ER 06:31 → ERHOLD 08:00 → MED/SURG2 12:38
PROVIDERS: ADMIT Internal Medicine; ATTEND Internal Medicine
DX: E11.10 Type 2 diabetes mellitus with ketoacidosis without coma (principal); Z79.899 Other long term (current) drug therapy; Z20.822 Contact with and (suspected) exposure to COVID-19; K21.9 Gastro-esophageal reflux disease without esophagitis; F99 Mental disorder, not otherwise specified; Z90.49 Acquired absence of other specified parts of digestive tract
CPT/HCPCS: 36415; 36600; 80048; 80053; 82805; 82948; 83690; 83735; 85025; 94799; 99284; J1815; J1817; J7030; J7050; J7121; U0002

== ENCOUNTER 2021-04-14 04:47 | Emergency (ER) | payer SELFPAY ==
[~2021-04-14] VITALS: Ht 160 cm; Wt 77.6 kg
[2021-04-14] MEDS ORDERED: HALOPERIDOL LACTATE 5 MG/ML VIAL IV STA (05:04)
[2021-04-14 05:14] LABS: BASOPHILS % 0.3 % (0.0-1.0); EOSINOPHILS % 0.3 % (0.0-6.0); HEMATOCRIT 42.1 % (38.2-49.6); HEMOGLOBIN 15.5 g/dL (14.0-18.0); LYMPHOCYTES # (AUTO) 2.2 (1.0-3.2); LYMPHOCYTES % 19.3 % (18.0-39.1); MEAN CORPUSCULAR HEMOGLOBIN 30.5 pg (28-32); MEAN CORPUSCULAR HGB CONC 36.8 g/dL (31-35); MEAN CORPUSCULAR VOLUME 82.7 fL (81-99); MONOCYTES # (AUTO) 0.8 (0.2-0.8); MONOCYTES % 6.5 % (4.4-11.3); NEUTROPHILS # (AUTO) 8.4 (2.1-6.9); NEUTROPHILS % 72.7 % (38.7-80.0); PLATELET COUNT 297 x10e3/uL (140-360); RED BLOOD COUNT 5.09 x10e6/uL (4.3-5.7); RED CELL DISTRIBUTION WIDTH 12.1 % (11.7-14.4)
[2021-04-14] MEDS ORDERED: LACTATED RINGER'S 1,000 ML INJ ONE ×2 (05:15→06:15)
[2021-04-14 05:18] LABS: ABG HCO3 19 mmol/L (22-26); ABG PCO2 18 mmHg (35-45); ABG PH 7.63 (7.35-7.45); ABG PO2 124 mmHg (80-105); ABG TCO2 19
[2021-04-14] MEDS ORDERED: HALOPERIDOL LACTATE 5 MG/ML VIAL ONE (05:22)
[2021-04-14 05:37] LABS: ALBUMIN 4.4 g/dL (3.5-5.0); ALBUMIN/GLOBULIN RATIO 1.3 (0.8-2.0); ANION GAP 19.6 mmol/L (8-16); CALCIUM 10.1 mg/dL (8.4-10.2); CREATININE, SERUM 0.75 mg/dL (0.72-1.25); POTASSIUM 3.6 mmol/L (3.5-5.1)
[2021-04-14 05:38] LABS: AMYLASE 50 U/L (25-125); LIPASE 22 U/L (8-78)
[2021-04-14 05:41] LABS: CLARITY,URINE CLOUDY (CLEAR); COLOR,URINE YELLOW (YELLOW); KETONES,URINE >=160 (NEGATIVE); LEUKOCYTE ESTERASE ,URINE NEGATIVE (NEGATIVE); NITRITE,URINE NEGATIVE (NEGATIVE); PROTEIN,URINE DIPSTICK 1+ (NEGATIVE); URINE UROBILINOGEN 0.2 mg/dL (0.2 - 1)
[2021-04-14 05:43] LABS: AMPHETAMINES SCREEN,URINE NEGATIVE (NEGATIVE); BENZODIAZEPINES SCREEN,URINE NEGATIVE (NEGATIVE); PHENCYCLIDINE SCREEN,URINE NEGATIVE (NEGATIVE)
[2021-04-14 05:51] LABS: BACTERIA,URINE FEW /HPF; EPITHELIAL CELLS,URINE FEW /LPF; TRANSITIONAL EPI CELLS,URINE RARE
[2021-04-14] MEDS ORDERED: INSULIN REGULAR, HUMAN 100 UNIT/1 ML IV ONE (06:00)
[2021-04-14] MEDS ORDERED: INSULIN REGULAR, HUMAN 100 UNIT/1 ML ONE (06:15)
[2021-04-14] MEDS ORDERED: LACTATED RINGER'S 1,000 ML ONE (06:15)
[2021-04-14] MEDS ORDERED: ONDANSETRON ODT4 MG PO (07:36)
[2021-04-14 07:51] LABS: ANION GAP 13.4 mmol/L (8-16); CALCIUM 8.8 mg/dL (8.4-10.2); CREATININE, SERUM 0.58 mg/dL (0.72-1.25); POTASSIUM 3.4 mmol/L (3.5-5.1)
== END 2021-04-14 07:59 | disposition home or self-care (01) ==
LOC: ER 05:06
DX: R10.9 Unspecified abdominal pain (principal); E11.65 Type 2 diabetes mellitus with hyperglycemia; K29.70 Gastritis, unspecified, without bleeding; Z91.14 Patient's other noncompliance with medication regimen
CPT/HCPCS: 36415; 36600; 80048; 80053; 80307; 81001; 82150; 82805; 82948; 83690; 85025; 99283; J1630; J1817; J7121

== ENCOUNTER 2021-07-12 21:58 | Emergency (ER) | payer SELFPAY ==
[~2021-07-12] VITALS: Ht 160 cm; Wt 77.6 kg
[2021-07-12] MEDS ORDERED: LACTATED RINGER'S 1,000 ML INJ ONE (22:30)
[2021-07-12] MEDS ORDERED: HALOPERIDOL LACTATE 5 MG/ML VIAL IV ONE (22:30)
[2021-07-12 23:31] LABS: BASOPHILS # (AUTO) 0.1 (0.0-0.1); BASOPHILS % 0.4 % (0.0-1.0); EOSINOPHILS % 0.1 % (0.0-6.0); HEMOGLOBIN 17.4 g/dL (14.0-18.0); LYMPHOCYTES # (AUTO) 1.3 (1.0-3.2); LYMPHOCYTES % 10.9 % (18.0-39.1); MEAN CORPUSCULAR HEMOGLOBIN 30.7 pg (28-32); MEAN CORPUSCULAR VOLUME 82.9 fL (81-99); MONOCYTES # (AUTO) 0.7 (0.2-0.8); MONOCYTES % 5.6 % (4.4-11.3); NEUTROPHILS # (AUTO) 9.5 (2.1-6.9); NEUTROPHILS % 81.9 % (38.7-80.0); PLATELET COUNT 301 x10e3/uL (140-360); RED BLOOD COUNT 5.67 x10e6/uL (4.3-5.7); RED CELL DISTRIBUTION WIDTH 11.9 % (11.7-14.4)
[2021-07-12 23:48] LABS: ALBUMIN 4.4 g/dL (3.5-5.0); ALBUMIN/GLOBULIN RATIO 1.4 (0.8-2.0); ANION GAP 19.9 mmol/L (8-16); CALCIUM 9.2 mg/dL (8.4-10.2); CREATININE, SERUM 0.65 mg/dL (0.72-1.25); POTASSIUM 3.9 mmol/L (3.5-5.1)
[2021-07-12 23:52] LABS: CLARITY,URINE TURBID (CLEAR); COLOR,URINE YELLOW (YELLOW); KETONES,URINE >=160 (NEGATIVE); LEUKOCYTE ESTERASE ,URINE NEGATIVE (NEGATIVE); NITRITE,URINE NEGATIVE (NEGATIVE); PROTEIN,URINE DIPSTICK 1+ (NEGATIVE)
[2021-07-12 23:53] LABS: URINE UROBILINOGEN 0.2 mg/dL (0.2 - 1)
[2021-07-12 23:56] LABS: BACTERIA,URINE FEW /HPF; EPITHELIAL CELLS,URINE FEW /LPF; RBC,URINE 0-5 /HPF (0-5)
[2021-07-13] MEDS ORDERED: INSULIN REGULAR, HUMAN 100 UNIT/1 ML IV ONE
== END 2021-07-12 23:28 | disposition home or self-care (01) ==
LOC: ER 22:07
DX: E11.43 Type 2 diabetes mellitus with diabetic autonomic (poly)neuropathy (principal); E11.65 Type 2 diabetes mellitus with hyperglycemia; K31.84 Gastroparesis; R10.9 Unspecified abdominal pain
CPT/HCPCS: 36415; 80053; 81001; 82948; 83690; 85025; 99283; J1630; J7121

== ENCOUNTER 2021-08-03 04:16 | Emergency (ER) | payer SELFPAY ==
[~2021-08-03] VITALS: Ht 160 cm; Wt 77.6 kg
[2021-08-03] MEDS ORDERED: SODIUM CHLORIDE 0.9% 1000ML 1,000 ML IV ONE (04:30)
[2021-08-03] MEDS ORDERED: HALOPERIDOL LACTATE 5 MG/ML VIAL IM ONE (04:30)
[2021-08-03] MEDS ORDERED: SODIUM CHLORIDE 0.9% 1000ML 1,000 ML ONE (04:36)
[2021-08-03] MEDS ORDERED: HALOPERIDOL LACTATE 5 MG/ML VIAL ONE (04:36)
[2021-08-03 04:51] LABS: BASOPHILS # (AUTO) 0.1 (0.0-0.1); BASOPHILS % 0.4 % (0.0-1.0); EOSINOPHILS % 0.3 % (0.0-6.0); HEMATOCRIT 45.3 % (38.2-49.6); HEMOGLOBIN 16.6 g/dL (14.0-18.0); LYMPHOCYTES # (AUTO) 0.7 (1.0-3.2); LYMPHOCYTES % 5.7 % (18.0-39.1); MEAN CORPUSCULAR HEMOGLOBIN 30.4 pg (28-32); MEAN CORPUSCULAR HGB CONC 36.6 g/dL (31-35); MONOCYTES # (AUTO) 0.5 (0.2-0.8); MONOCYTES % 4.1 % (4.4-11.3); NEUTROPHILS # (AUTO) 10.5 (2.1-6.9); NEUTROPHILS % 88.9 % (38.7-80.0); PLATELET COUNT 242 x10e3/uL (140-360); RED BLOOD COUNT 5.46 x10e6/uL (4.3-5.7); RED CELL DISTRIBUTION WIDTH 11.8 % (11.7-14.4)
[2021-08-03 05:02] LABS: AMYLASE 75 U/L (25-125); LIPASE 41 U/L (8-78)
[2021-08-03 05:04] LABS: ALBUMIN 4.2 g/dL (3.5-5.0); ALBUMIN/GLOBULIN RATIO 1.1 (0.8-2.0); ANION GAP 20.4 mmol/L (8-16); CALCIUM 9.8 mg/dL (8.4-10.2); CREATININE, SERUM 0.76 mg/dL (0.72-1.25); POTASSIUM 3.4 mmol/L (3.5-5.1)
== END 2021-08-03 04:35 | disposition left against medical advice (07) ==
LOC: ER 04:20
DX: R11.2 Nausea with vomiting, unspecified (principal); R10.9 Unspecified abdominal pain
CPT/HCPCS: 36415; 80053; 82150; 83690; 85025; 99282; C9113; J1630; J7030